=== PATIENT | male | born 1995 | race Caucasian/White ===

== ENCOUNTER 2018-05-03 01:46 | Emergency (ER) | payer OTHER ==
[~2018-05-03] VITALS: Ht 182.9 cm; Wt 70.3 kg
[2018-05-03 01:48] VITALS: Ht 182.9 cm; Wt 70.3 kg
[2018-05-03 03:50] VITALS: BP 138/83
== END 2018-05-03 03:50 | disposition short-term general hospital (02) ==
LOC: ED 01:46
DX: S62.613B Displaced fracture of proximal phalanx of left middle finger, initial encounter for open fracture (principal); X94.0XXA Assault by shotgun, initial encounter; Y93.89 Activity, other specified; Y92.89 Other specified places as the place of occurrence of the external cause; Y99.8 Other external cause status
CPT/HCPCS: 90715; J2270; Q0092

== ENCOUNTER 2019-11-07 22:05 | Emergency (ER) | payer OTHER ==
[~2019-11-07] VITALS: Ht 182.9 cm; Wt 83.9 kg
[2019-11-07 22:13] VITALS: Ht 182.9 cm; Wt 83.9 kg
[2019-11-07 23:32] VITALS: BP 122/65
== END 2019-11-07 23:32 | disposition home or self-care (01) ==
LOC: ED 22:05
DX: S62.392A Other fracture of third metacarpal bone, right hand, initial encounter for closed fracture (principal); F17.210 Nicotine dependence, cigarettes, uncomplicated; Z71.6 Tobacco abuse counseling; W22.8XXA Striking against or struck by other objects, initial encounter; Y93.89 Activity, other specified; Y92.89 Other specified places as the place of occurrence of the external cause; Y99.8 Other external cause status
CPT/HCPCS: 99406; Q0092